=== PATIENT | male | born 1975 | race Caucasian/White ===

== ENCOUNTER 2019-06-20 10:09 | Emergency (ER) | payer SELFPAY ==
[2019-06-20] MEDS ORDERED: diphenhydrAMINE 50 MG/ML SDV IVPUSH ONE (11:24)
[2019-06-20] MEDS ORDERED: Pantoprazole 40 MG Vial IVPUSH ONE (11:24)
[2019-06-20] MEDS ORDERED: Sodium Chloride 0.9% 1,000 ML IV SCH (11:30)
[2019-06-20] MEDS ORDERED: Pantoprazole 40 MG Vial ONE (11:32)
[2019-06-20] MEDS ORDERED: diphenhydrAMINE 50 MG/ML SDV ONE (11:33)
--- NOTE | 2019-06-20 16:14 | ER ---
HISTORY OF PRESENT ILLNESS: The patient is a 44-year-old male brought in by local ambulance. He was found by them in a state of apparent shock in a bathtub in his home with considerable blood. Of note, the patient was somewhat incoherent upon initial evaluation, but later was able to give a history that he had been having some abdominal discomfort for several hours and then began bleeding per rectum. He became weak and dizzy and blacked out on at least one occasion. He describes a fall in which he struck his head and had loss of consciousness for an unknown period of time. 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 He has chronic abdominal pain and has had occasional bleeding previously. He also has chronic pain issues secondary to prior injuries. He described no particular change in his general condition until the day before admission when he had some mild abdominal discomfort, not unusual for him. Regular medications are Carafate. He also is on oxycodone on a maintenance basis for chronic back and abdominal pain. Initial vitals by the EMS crew showed patient had a pulse in the 120 range with blood pressure approximately 70/50. He was pale, lethargic, and disoriented. Considerable blood was reported at the scene. Upon initial presentation here, the patient was alert, but was quite pale. Pulse was in the 120 range and blood pressure was in the mid 90s over 60s. The patient was alert and able to give a coherent history. He is complaining of headache and neck pain from the fall. He has mild abdominal discomfort. INITIAL PHYSICAL EXAMINATION: HEENT: No evidence of trauma. Pupils are equal and reactive. NECK: The patient is in a C-spine collar. He has some mild discomfort on movement. LUNGS: Clear. HEART: Rhythm is regular and rapid. No murmur noted. ABDOMEN: Bowel sounds are present. Abdomen does not appear distended. There is no tenderness or mass noted. NEURO: No focal signs are present. LABORATORY DATA: Initial hemoglobin was low at 8.5, platelets normal at 312, 000 and clotting studies were normal. BUN was mildly elevated at 28, presumably secondary to GI bleeding. Creatinine normal. Lactic acid mildly elevated at 2.5. TREATMENT: IV access was obtained and 2 IVs of normal saline were started. A unit of O- negative packed cells was also started with premedication with Benadryl 25 mg. Protonix 40 mg was also given intravenously. ER COURSE: The patient was maintained with transfusion and IV fluids. His pulse is dropped down to the 100-110 range and blood pressure remained in the 90s over 60s. The patient was alert and oriented. His pallor improved and peripheral perfusion improved. The patient demonstrated no overt evidence of bleeding in the ED. CT scan of the head, neck , and abdomen was unremarkable for injury or acute GI process. IMPRESSION: Lower GI bleeding. PLAN: The patient was discussed with Dr. Juaquin Beck of the [facility], who agreed to accept the patient in transfer. He was stable and transferred by air per [facility]. ADRIANNA/MARTINA /[id number] MTDD
--- NOTE | 2019-06-20 17:29 | CT ---
DATE OF SERVICE: 06/20/19 CLINICAL DATA: fall UNENHANCED BRAIN CT: Multislice axial acquisition was performed. No priors. No masses or mass effect. No intracranial hemorrhage. No evidence of acute or subacute infarct. No osseous abnormalities. IMPRESSION: No acute intracranial abnormalities. [id number] [facility]
--- NOTE | 2019-06-20 17:33 | CT ---
DATE OF SERVICE: 06/20/19 CLINICAL DATA: fall CERVICAL SPINE CT: Multislice axial acquisition was performed. Axial images and sagittal and coronal reformations are reviewed. The sagittal reformations demonstrate mild reversal of the normal cervical lordosis from C2 to C6. This is most likely positional or due to muscle spasm. No acute fracture or dislocation. No lytic or blastic bone lesions. There is degenerative disc disease at multiple levels, greatest at the C5-6 level. There is moderate neural foraminal stenosis bilaterally at this level. No central stenosis. The soft tissues are unremarkable. The visualized lung apices are clear. IMPRESSION: No acute abnormalities. [id number] [facility]
--- NOTE | 2019-06-20 17:38 | CT ---
DATE OF SERVICE: 06/20/19 CLINICAL DATA: bleeding UNENHANCED ABDOMEN AND PELVIC CT: Multislice acquisition through the abdomen and pelvis without IV or oral contrast was performed. Comparison is made to a prior enhanced abdomen and pelvis CT dated 11/02/15. There is significant beam-hardening and streak artifact produced by the patient' s arms. The lung bases are clear. There are surgical changes involving the stomach consistent with prior gastric bypass. The unenhanced liver appears grossly normal. The patient is status post cholecystectomy. The spleen appears normal. The pancreas appears normal. The right and left adrenals appear normal. The right and left kidneys appear normal. No nephrocalcinosis or nephrolithiasis. No hydronephrosis or hydroureter. The bladder is fluid-filled. It appears normal. No free air. No free fluid. No dilated loops of bowel. No adenopathy. No aortic aneurysm. No displaced fractures. IMPRESSION: No acute abnormalities. [id number] [facility]TD[facility]
== END 2019-06-20 12:35 ==
LOC: LB.ED 10:09
DX: K92.2 Gastrointestinal hemorrhage, unspecified (principal)
CPT/HCPCS: 36415; 36430; 70450; 72125; 74176; 80053; 83605; 85025; 85610; 85730; 86850; 86900; 86901; 86920; 86922; 96361; 96374; 96375; 99284; 99285-25; A0425; A0429; C9113; J1200; J7030; P9016